=== PATIENT | female | born 1990 | race Caucasian/White ===

== ENCOUNTER 2017-01-15 18:39 | Emergency (ER) | payer BC ==
[~2017-01-15] VITALS: Ht 165.1 cm; Wt 79.4 kg
[~2017-01-15 18:39] MED LIST: APAP500; BENTYL 10 MG CA10 M1; CIPROFLOXACIN500 M1 PO; DESENEX TP; DIFLUCAN150 MG PO; FLAGYL500 MG PO; IRON159 MG; NOHOMEMEDICATIONS; PRENATAL; PRENATAL PO; TRAMADOL 50 MG50 MG PO; ZOFRAN ODT4 MG PO
[2017-01-15 19:18] LABS: URINE BILIRUBIN NEGATIVE (Negative); URINE BLOOD NEGATIVE (Negative); URINE COLOR YELLOW; URINE GLUCOSE-RANDOM* NEGATIVE (Negative); URINE KETONES NEGATIVE (Negative); URINE LEUKOCYTES-REFLEX NEGATIVE (Negative); URINE PROTEIN (DIPSTICK) NEGATIVE (Negative); URINE SPECIFIC GRAVITY 1.015 (1.003-1.035); URINE UROBILINOGEN 0.2 E.U./dl (0.2-1.0)
[2017-01-15 20:11] LABS: ABSOLUTE NEUTROPHILS 4.6 thou/uL (1.4-8.2); BASOPHILS 0.5 % (0.0-2.0); EOSINOPHILS 1.9 % (0.0-3.0); HEMATOCRIT 37.8 % (37.0-47.0); HEMOGLOBIN 13.1 gm/dL (12.0-15.0); LYMPHOCYTES 39.2 % (24.0-44.0); MANUAL DIFF NO; MCH 29.6 pg (26.0-34.0); MCHC 34.7 g/dL (28.0-37.0); MCV 85.3 fL (80.0-100.0); MONOCYTES 9.5 % (1.0-8.0); PLATELET COUNT 292 thou/uL (150-400); POLYS 48.9 % (36.0-66.0); RBC 4.43 mil/uL (4.20-5.00); RDW 12.6 % (10.5-14.5); WBC 9.3 thou/uL (4.0-11.0)
[2017-01-15] MEDS ORDERED: UNICOMPLEX M TA1 TA1 PO (20:17)
[2017-01-15 20:21] LABS: CALCIUM 9.1 mg/dL (8.5-10.1); CREATININE 0.7 mg/dL (0.6-1.0); POTASSIUM 4.3 mmol/L (3.5-5.1)
[2017-01-15 20:27] LABS: ALBUMIN 3.9 g/dL (3.4-5.0); TOTAL BILIRUBIN 0.2 mg/dL (<0.1-1.0); TOTAL PROTEIN 6.8 g/dL (6.4-8.2)
[2017-01-15] MEDS ORDERED: NAPROSYN500 MG PO (21:24)
[2017-01-15] MEDS ORDERED: ROBAXIN500 MG PO (21:24)
[2017-01-15] MEDS ORDERED: TRAMADOL 50 MG50 MG PO (21:24)
[2017-01-15 21:51] VITALS: BP 128/80
== END 2017-01-15 21:52 | disposition home or self-care (01) ==
LOC: ER 18:39
PROVIDERS: Emergency Medicine
DX: M54.5 Low back pain (principal); R10.30 Lower abdominal pain, unspecified; Z98.890 Other specified postprocedural states

== ENCOUNTER 2017-07-09 12:19 | Emergency (ER) | payer BC, OTHER ==
[~2017-07-09] VITALS: Ht 165.1 cm; Wt 76.2 kg
[~2017-07-09 12:19] MED LIST changes: +NAPROSYN500 MG PO; +ROBAXIN500 MG PO; +UNICOMPLEX M TA1 TA1 PO
[2017-07-09 12:40] LABS: URINE BILIRUBIN NEGATIVE (Negative); URINE BLOOD NEGATIVE (Negative); URINE CLARITY CLEAR; URINE COLOR YELLOW; URINE GLUCOSE-RANDOM* NEGATIVE (Negative); URINE KETONES NEGATIVE (Negative); URINE LEUKOCYTES 2+ (Negative); URINE NITRITE NEGATIVE (Negative); URINE PROTEIN (DIPSTICK) NEGATIVE (Negative); URINE SPECIFIC GRAVITY 1.015 (1.005-1.035); URINE UROBILINOGEN 0.2 E.U./dl (0.2-1.0)
[2017-07-09 12:50] LABS: ABSOLUTE NEUTROPHILS 6.1 thou/uL (1.4-8.2); BASOPHILS 0.7 % (0.0-2.0); EOSINOPHILS 0.8 % (0.0-3.0); HEMATOCRIT 40.3 % (37.0-47.0); HEMOGLOBIN 13.7 gm/dL (12.0-15.0); LYMPHOCYTES 35.2 % (24.0-44.0); MCH 29.4 pg (26.0-34.0); MCV 86.6 fL (80.0-100.0); MONOCYTES 7.9 % (1.0-8.0); PLATELET COUNT 332 thou/uL (150-400); POLYS 55.4 % (36.0-66.0); RBC 4.66 mil/uL (4.20-5.00); RDW 12.5 % (10.5-14.5)
[2017-07-09 12:58] LABS: CALCIUM 9.4 mg/dL (8.5-10.1); CREATININE 0.9 mg/dL (0.6-1.0); POTASSIUM 4.1 mmol/L (3.5-5.1)
[2017-07-09 13:04] LABS: ALBUMIN 3.9 g/dL (3.4-5.0); TOTAL BILIRUBIN 0.4 mg/dL (<0.1-1.0); TOTAL PROTEIN 7.3 g/dL (6.4-8.2)
[2017-07-09 13:24] LABS: AMORPHOUS URATES Few /LPF (None Seen); BACTERIA 1-9 Few /HPF (None Seen); CASTS None Seen /LPF (None Seen); SQUAMOUS 4-10 Moderate /LPF (0-3); URINE RBC None Seen /HPF (0-2); URINE WBC 6-15 Few /HPF (0-5)
[2017-07-09] MEDS ORDERED: BACTRIM DS TAB1 EACH PO (13:53)
[2017-07-09] MEDS ORDERED: ULTRAM 50MG TAB50 MG PO (13:53)
[2017-07-09] MEDS ORDERED: PHENAZOPYRIDIN200 M2 PO (13:53)
== END 2017-07-09 14:08 ==
LOC: ER 12:19
PROVIDERS: Physician Assistant
DX: N39.0 Urinary tract infection, site not specified (principal); Z90.49 Acquired absence of other specified parts of digestive tract

== ENCOUNTER 2017-09-03 18:04 | Emergency (ER) | payer BC, OTHER ==
[~2017-09-03] VITALS: Ht 165.1 cm; Wt 79.4 kg
[~2017-09-03 18:04] MED LIST changes: +BACTRIM DS TAB1 EACH PO; +PHENAZOPYRIDIN200 M2 PO; +ULTRAM 50MG TAB50 MG PO
[2017-09-03] MEDS ORDERED: MOBIC15 MG PO (19:34)
[2017-09-03 19:53] VITALS: BP 124/72
== END 2017-09-03 19:54 | disposition home or self-care (01) ==
LOC: ER 18:04
DX: S16.1XXA Strain of muscle, fascia and tendon at neck level, initial encounter (principal); S29.012A Strain of muscle and tendon of back wall of thorax, initial encounter; V89.2XXA Person injured in unspecified motor-vehicle accident, traffic, initial encounter; Y93.89 Activity, other specified; Y92.89 Other specified places as the place of occurrence of the external cause; Y99.8 Other external cause status

== ENCOUNTER 2018-05-25 10:42 | Emergency (ER) | payer BC, OTHER ==
[~2018-05-25] VITALS: Ht 165.1 cm; Wt 73.5 kg
[~2018-05-25 10:42] MED LIST changes: +MOBIC15 MG PO
[2018-05-25] MEDS ORDERED: TESSALON PERLE100 M1 PO (11:42)
[2018-05-25] MEDS ORDERED: VENTOLIN HFA 1818 GM INH (11:42)
[2018-05-25 12:02] VITALS: BP 113/69
--- NOTE | 2018-05-26 08:17 | EKG ---
[address] [address] ELECTROCARDIOGRAM REPORT Name: MICHELLE WOOD Room #: DEP Nehal#: [id number] Admission: 05/25/18 Attend Phys: Discharge: 05/25/18 Date of : 86 Report #: [id number] THIS REPORT FOR: //name// [facility] ED Test Date: 2018-05-25 Test Time: 11:16:20 Pat Name: MICHELLE WOOD Department: Room: Gender: F Neurosurgery Physician: star : [id number] Requested By: Derick Ayala Order Number: [id number] MD: Maxim Patterson Measurements Intervals [place] Rate: 89 P: 29 TX: 119 QRS: 26 QRSD: 87 T: 19 QT: 351 QTc: 428 Interpretive Statements Sinus rhythm Borderline short [place] interval No previous ECG available for comparison Electronically Signed On 05-26-2018 8:17:15 [employer] by Maxim Patterson [email or web address] <ELECTRONICALLY SIGNED> By: Maxim Patterson MD 05/26/18 0817 [id number] Maxim Patterson MD /LORRI
== END 2018-05-25 12:03 | disposition home or self-care (01) ==
LOC: ER 10:42
DX: J40 Bronchitis, not specified as acute or chronic (principal); Z04.9 Encounter for examination and observation for unspecified reason; Z98.890 Other specified postprocedural states

== ENCOUNTER 2018-06-23 12:00 | Emergency (ER) | payer BC, OTHER ==
[~2018-06-23 12:00] MED LIST changes: +TESSALON PERLE100 M1 PO; +VENTOLIN HFA 1818 GM INH
[2018-06-23 12:28] LABS: URINE BILIRUBIN NEGATIVE (Negative); URINE BLOOD NEGATIVE (Negative); URINE CLARITY CLEAR; URINE COLOR YELLOW; URINE GLUCOSE-RANDOM* NEGATIVE (Negative); URINE KETONES NEGATIVE (Negative); URINE LEUKOCYTES-REFLEX NEGATIVE (Negative); URINE NITRITE-REFLEX NEGATIVE (Negative); URINE PROTEIN (DIPSTICK) NEGATIVE (Negative); URINE UROBILINOGEN 0.2 E.U./dl (0.2-1.0)
== END 2018-06-23 14:31 | disposition left against medical advice (07) ==
LOC: ER 12:00
PROVIDERS: Nurse Practitioner Family
DX: Z53.21 Procedure and treatment not carried out due to patient leaving prior to being seen by health care provider (principal)

== ENCOUNTER 2018-06-23 16:26 | Emergency (ER) | payer BC, OTHER ==
[~2018-06-23] VITALS: Ht 165.1 cm; Wt 74.8 kg
[2018-06-23 17:04] LABS: URINE BILIRUBIN NEGATIVE (Negative); URINE BLOOD NEGATIVE (Negative); URINE CLARITY CLEAR; URINE COLOR YELLOW; URINE GLUCOSE-RANDOM* NEGATIVE (Negative); URINE KETONES NEGATIVE (Negative); URINE LEUKOCYTES-REFLEX NEGATIVE (Negative); URINE NITRITE-REFLEX NEGATIVE (Negative); URINE PROTEIN (DIPSTICK) NEGATIVE (Negative); URINE SPECIFIC GRAVITY >= 1.030 (1.005-1.035); URINE UROBILINOGEN 0.2 E.U./dl (0.2-1.0)
[2018-06-23 17:57] VITALS: BP 124/71
== END 2018-06-23 17:58 | disposition home or self-care (01) ==
LOC: ER 16:26
PROVIDERS: Emergency Medicine
DX: N89.8 Other specified noninflammatory disorders of vagina (principal); Z90.49 Acquired absence of other specified parts of digestive tract; Z98.890 Other specified postprocedural states

== ENCOUNTER 2021-05-14 03:04 | Emergency (ER) | payer OTHER ==
[~2021-05-14] VITALS: Ht 165.1 cm; Wt 66.7 kg
[~2021-05-14 03:04] MED LIST changes: +LEVSIN0.125 MG PO; +PRILOSEC OTC20 MG PO
[2021-05-14 03:48] LABS: URINE BILIRUBIN NEGATIVE (Negative); URINE BLOOD NEGATIVE (Negative); URINE CLARITY CLEAR; URINE COLOR YELLOW; URINE GLUCOSE-RANDOM* NEGATIVE (Negative); URINE KETONES NEGATIVE (Negative); URINE LEUKOCYTES-REFLEX NEGATIVE (Negative); URINE NITRITE-REFLEX NEGATIVE (Negative); URINE PROTEIN (DIPSTICK) NEGATIVE (Negative); URINE SPECIFIC GRAVITY >= 1.030 (1.005-1.035); URINE UROBILINOGEN 0.2 E.U./dl (0.2-1.0)
[2021-05-14 03:50] LABS: ABSOLUTE NEUTROPHILS 6.3 thou/uL (1.4-8.2); BASOPHILS 0.4 % (0.0-2.0); EOSINOPHILS 1.9 % (0.0-3.0); HEMATOCRIT 37.5 % (37.0-47.0); HEMOGLOBIN 12.7 gm/dL (12.0-15.0); LYMPHOCYTES 31.2 % (24.0-44.0); MCH 30.6 pg (26.0-34.0); MONOCYTES 8.2 % (1.0-8.0); PLATELET COUNT 293 thou/uL (150-400); POLYS 58.3 % (36.0-66.0); RBC 4.17 mil/uL (4.20-5.00); RDW 12.5 % (10.5-14.5); WBC 10.7 thou/uL (4.0-11.0)
[2021-05-14 03:56] LABS: CALCIUM 8.8 mg/dL (8.5-10.1); CREATININE 0.6 mg/dL (0.6-1.0)
[2021-05-14 04:02] LABS: ALBUMIN 3.8 g/dL (3.4-5.0); TOTAL BILIRUBIN 0.4 mg/dL (0.2-1.0); TOTAL PROTEIN 6.3 g/dL (6.4-8.2)
[2021-05-14 05:38] VITALS: BP 109/56
== END 2021-05-14 05:50 | disposition home or self-care (01) ==
LOC: ER 03:04
PROVIDERS: Emergency Medicine
DX: R10.9 Unspecified abdominal pain (principal); Z98.51 Tubal ligation status; Z90.49 Acquired absence of other specified parts of digestive tract